=== PATIENT | female | born 1945 | race Caucasian/White ===

== ENCOUNTER 2019-09-14 17:37 | Inpatient (IN) | payer BC ==
[2019-09-14] VITALS (18 sets, daily range): BP systolic 86–163; BP diastolic 37–103
[~2019-09-14] VITALS: Ht 152.4 cm; Wt 65.3 kg
--- NOTE | 2019-09-14 11:21 | NUR ---
Respiratory note: PATIENT PLACED ON RENTAL V60 BIPAP FOR SEVERE SOB SECONDARY TO FLASH PULMONARY EDEMA. SHE WAS FITTED WITH A MEDIUM FULL FACE MASK AND SKIN IS INTACT AROUND MASK SITE. PATIENT REMAINS TACHYPNEIC BUT STATES SHE IS FEELING SOME RELIEF. BIPAP PLUGGED INTO RED OUTLET AND ALL ALARMS ARE SET AND AUDIBLE. WILL CONTINUE TO ASSESS PATIENT AND BIPAP FUNCTION. SETTINGS ARE FOLLOWS: IPAP 15, EPAP 8, FIO2 100%.
[2019-09-14] MEDS: PROPOFOL 100 ML IV SCH ×2 (12:48→18:50)
--- NOTE | 2019-09-14 13:06 | NUR ---
Respiratory note: PATIENT WAS INTUBATED FOR IMPENDING RESPIRATORY FAILURE SECONDARY TO FLASH PULMONARY EDEMA. SHE WAS INTUBATED WITH AN 8.0 ETT BY RAMIN BENEDICT. POSITIVE COLOR CHANGE WAS SEEN ON CO2 DETECTOR, BILATERAL BREATH SOUNDS WERE HEARD, AND CONDENSATION WAS SEEN IN TUBE; ETT WAS SECURED VIA MIMI AT THE 22CM MARKING AT THE LIP. AWAITING CXR FOR ETT DEPTH CONFIRMATION. PATIENT WAS PLACED ON V20 V200 VENT WITH THE FOLLOWING SETTINGS PER DR. VALLE'S BEDSIDE ORDER: AC 14, 400, +8, 100% SPUTUM SAMPLE COLLECTED AND SENT TO LAB. A LARGE AMOUNT OF PINK FROTHY SECRETIONS WERE PRESENT WHEN SUCTIONED. PATIENT IS SEDATED ON PROPOFOL DRIP AND IS SLIGHTLY AGITATED. VENT PLUGGED INTO RED OUTLET AND ALL ALARMS ARE SET AND AUDIBLE. WILL CONTINUE TO ASSESS PATIENT WELL VENTILATOR FUNCTION.
[2019-09-14 13:39] LABS: Basophils # (auto) 0 10 ^3/uL (0-0.2); Basophils % (auto) 0.3 % (0.0-2.0); Eosinophils # (auto) 0 10 ^3/uL (0-0.8); Eosinophils % (auto) 0.1 % (0.0-7.0); Hematocrit 46.9 % (36.0-46.0); Hemoglobin 14.7 g/dL (12.2-16.2); Lymphocytes # (auto) 1.1 10 ^3/uL (0.4-5.4); Mean Corpuscular Hemoglobin 29.3 pg (28.0-32.0); Mean Corpuscular Hgb Conc. 31.5 g/dL (32.0-36.0); Mean Corpuscular Volume 93.1 fL (80.0-100.0); Monocytes # (auto) 0.4 10 ^3/uL (0-1.3); Monocytes % (auto) 3.5 % (0.0-12.0); Neutrophils # (auto) 9.2 10 ^3/uL (1.6-8.6); Neutrophils % (auto) 86.1 % (37.0-80.0); Platelet Count (auto) 150 10^3/uL (140-450); Red Blood Cells 5.03 10^6/uL (4.0-5.20); Red Cell Distribution Width 14.3 % (11.8-14.3); White Blood Cell 10.7 10^3/uL (4.4-10.8)
[2019-09-14 14:00] LABS: Anion Gap 9 (5-15); BUN/Creatinine Ratio 19.6; Blood Urea Nitrogen 19 mg/dL (7-18); Calcium 8.7 mg/dL (8.5-10.1); Carbon Dioxide 25 mmol/L (21-32); Chloride 105 mmol/L (98-107); GFR African American 72 mL/min; GFR Non-African American 59 mL/min; Glucose 199 mg/dL (74-106); Sodium 139 mmol/L (136-145)
[2019-09-14 14:11] LABS: Potassium 2.6 mmol/L (3.5-5.1)
[2019-09-14] MEDS: NOREPINEPHRINE 8 MG/250ML KIT 250 ML IV SCH (14:15)
[2019-09-14] MEDS: levoFLOXacin 500MG 100 ML IV SCH (15:00)
[2019-09-14 16:02] LABS: Calcium 7.8 mg/dL (8.5-10.1); Potassium 3.1 mmol/L (3.5-5.1)
[2019-09-14 16:05] LABS: BUN/Creatinine Ratio 18.3
[2019-09-14 16:14] LABS: Bilirubin, Total 1.3 mg/dL (0.2-1.0); Total Protein 7.8 g/dL (6.4-8.2)
[~2019-09-14 17:37] MED LIST: ACETAMINOPHEN 500 MG TAB PO PRN; ALBUTEROL SULF 2.5 MG/0.5ML(0.5%) NEB SOLN NEB PRN; AMIO200T33 PO; ANGIOMAX 250 MG VIAL IV ONE; ASPI1TAB19 PO; CHOL10009 PO; ETOMIDATE (2MG/ML) 20ML VIAL IV ONE; FLAX100024 PO; FURO1TAB33 PO; FUROSEMIDE 20 MG/2 ML VIAL ONE; FUROSEMIDE 40 MG/4 ML VIAL IV ONE; HEPARIN SODIUM (PORCINE) 5000 UNITS/ML 1ML VIAL ONE; HYDROcodone-ACET 5/325MG TAB PO PRN; IBAN1TAB3 PO; IODIXANOL 320MG/ML 100ML BTL IV ONE; LABETALOL HCL 5 MG/ML 4ML SYRINGE IV ONE; LABETALOL HCL 5 MG/ML ML 20ML VIAL IV ONE; LIDOCAINE 2%HCL (LOCAL ANESTH.) INJ 20ML MDV ONE; LIDOCAINE VISCOUS 2% 15ML UD PO ONE; LOSA-69 PO; MAGNESIUM SULFATE 1GM/100ML 100 ML IV ONE; MIDAZOLAM HCL 1MG/1ML-2 ML VIAL IV ONE; MORPHINE SULF INJ 2 MG/ML SYRINGE 1ML IV PRN; MULT1TAB69 PO; NITROGLYCERIN 0.4 MG SL TAB SL PRN; NOREPINEPHRINE 8 MG/250ML KIT 250 ML IV ONE; ONDANSETRON HCL 4 MG/2 ML VIAL IV PRN; PANTOPRAZOLE 40 MG/10 ML VIAL INJ IV ONE; POTA1TAB61 PO; POTASSIUM CHL 20MEQ/100ML 100 ML IV ONE; POTASSIUM EFFERVESENT TAB 25 MEQ GT ONE; PROPOFOL 100 ML IV ONE; SODIUM BICARBONATE 8.4 % INJ 50ML VIAL IV ONE; SODIUM CHL 0.9% 0 ML ONE; SODIUM CHLORIDE 0.9% 250 ML IV ONE; SPIRONOLACTONE 25 MG TAB PO ONE; SUCCINYLCHOLINE CHLORIDE 20 MG/ML 10ML VIAL IV ONE; VERAPAMIL 2.5MG/ML INJ 2ML VIAL IV ONE; diphenhdrAMINE HCL 50 MG/1 ML VL IV ONE; fentaNYL CITRATE 100 MCG/2 ML VL IV ONE; hydrALAZINE HCL 20 MG/ML VL IV ONE; hydrALAZINE HCL 20 MG/ML VL ONE
[2019-09-14] MEDS ORDERED: POTASSIUM CHL 20MEQ/100ML 100 ML IV ONE (18:34)
[2019-09-14] MEDS ORDERED: PROPOFOL 100 ML IV ONE ×2 (18:34→22:49)
--- NOTE | 2019-09-14 18:35 | NUR ---
Pt being admitted to ICU SUZETTE NOLASCO admitted to ICU intubated and sedated, size 8 ET, 24 on the lip, AC 14, Vt 400, PEEP 8, FIO2 40%. Patient transfered to bed, connected to ICU monitoring. OGT clamped. RT wrist and RT AC dressing dry and asymptomatic. See spreadsheet for complete physical assessment. Bed locked on low position, side rails up x2, bed alarms on at all times, will continue to monitor patient.
[2019-09-14] MEDS ORDERED: FUROSEMIDE 20 MG/2 ML VIAL ONE (19:02)
[2019-09-14] MEDS: FUROSEMIDE 20 MG/2 ML VIAL IV SCH (19:03)
--- NOTE | 2019-09-14 19:30 | NUR ---
REPORT RECEIVED AND ASSUMED CARE; SEE INTERVENTIONS FOR ASSESSMENT; SEE IV SPREADSHEET FOR GTTS; VS STABLE AT THIS TIME WITH PT. ON LEVO GTT AT 6MCG; PT. ADMITTED FROM TAX ASSESSOR S/P HEART CATH- INTUBATED R/T INCREASED WOB AND DYSPNEA/ POSSIBLE FLASH PULMONARY EDEMA; WILL CONT. TO MONITOR.
[2019-09-14 19:47] LABS: Urine Bacteria NONE SEEN /hpf (None Seen); Urine Blood 3+ /uL (Negative); Urine Hyaline Cast FEW /lpf (0 - 2); Urine Mucus FEW (None Seen); Urine Specific Gravity 1.012 (1.001-1.035); Urine WBC 6 /hpf (0 - 5)
[2019-09-14] MEDS: POTASSIUM EFFERVESENT TAB 25 MEQ GT SCH (22:00)
[2019-09-15] VITALS (63 sets, daily range): BP systolic 89–122; BP diastolic 33–69
[2019-09-15 04:40] LABS: Albumin 2.8 g/dL (3.4-5.0); Calcium 7.7 mg/dL (8.5-10.1); Potassium 3.7 mmol/L (3.5-5.1)
[2019-09-15 04:44] LABS: BUN/Creatinine Ratio 17.4; Bilirubin, Total 0.9 mg/dL (0.2-1.0)
[2019-09-15 04:46] LABS: Basophils # (auto) 0 10 ^3/uL (0-0.2); Basophils % (auto) 0.1 % (0.0-2.0); Eosinophils # (auto) 0 10 ^3/uL (0-0.8); Hematocrit 41.5 % (36.0-46.0); Hemoglobin 13.4 g/dL (12.2-16.2); Lymphocytes # (auto) 0.9 10 ^3/uL (0.4-5.4); Lymphocytes % (auto) 5.8 % (10.0-50.0); Mean Corpuscular Hemoglobin 28.9 pg (28.0-32.0); Mean Corpuscular Hgb Conc. 32.2 g/dL (32.0-36.0); Mean Corpuscular Volume 89.6 fL (80.0-100.0); Monocytes # (auto) 0.8 10 ^3/uL (0-1.3); Monocytes % (auto) 4.9 % (0.0-12.0); Neutrophils # (auto) 14.5 10 ^3/uL (1.6-8.6); Neutrophils % (auto) 89.2 % (37.0-80.0); Nucleated Red Blood Cells % 0.1 %; Red Blood Cells 4.64 10^6/uL (4.0-5.20); Red Cell Distribution Width 13.5 % (11.8-14.3); White Blood Cell 16.2 10^3/uL (4.4-10.8)
[2019-09-15 04:47] LABS: Platelet Count (auto) 128 10^3/uL (140-450)
[2019-09-15] MEDS ORDERED: NOREPINEPHRINE 8 MG/250ML KIT 250 ML IV ONE (04:56)
[2019-09-15] MEDS ORDERED: FUROSEMIDE 40 MG/4 ML VIAL ONE (04:56)
[2019-09-15] MEDS ORDERED: PROPOFOL 100 ML IV ONE (04:56)
[2019-09-15] MEDS: FUROSEMIDE 20 MG/2 ML VIAL IV SCH ×2 (06:00→17:49)
[2019-09-15] MEDS: MULTIPLE VITAMINS W/ MINERALS TAB PO SCH (07:00)
[2019-09-15] MEDS: CHOLECALCIFEROL (VITD3) 1,000UNIT=25mCg TAB PO SCH (07:00)
--- NOTE | 2019-09-15 07:30 | NUR ---
Opening Shift Note Assumed care of patient, intubated and sedated. Arousable to voice, able to make needs known. No S/S of distress/SOB or pain. See interventions for complete assessment. Bed locked on low position, side rails up x2, bed alarms on at all times, will continue to monitor for changes Q1hr and PRN.
--- NOTE | 2019-09-15 07:30 | NUR ---
Dr Lawton at bedside, updated on patient's status. Patient seen and examined. Received order to give Albumin IV and hold Lasix for today. Orders read back and verified. Will carry out.
[2019-09-15] MEDS ORDERED: ALBUMIN 25% 50 ML IV ONE (07:45)
[2019-09-15] MEDS ORDERED: SPIRONOLACTONE 25 MG TAB PO ONE (07:45)
--- NOTE | 2019-09-15 08:37 | NUR ---
OGT medications held, patient marilin CPAP today.
--- NOTE | 2019-09-15 09:00 | NUR ---
Patient for CPAP today. Sedation turned off. Will continue to monitor.
[2019-09-15] MEDS ORDERED: levoFLOXacin 500MG 100 ML IV ONE (09:33)
[2019-09-15] MEDS ORDERED: PANTOPRAZOLE 40 MG/10 ML VIAL INJ IV ONE (09:33)
--- NOTE | 2019-09-15 09:47 | NUR ---
Respiratory note: PT PLACED ON CPAP, TOLERATING WELL. RN AT BEDSIDE. NIF-44.3, VC 1318, RSBI 53. WILL CONTINUE TO MONITOR ORDERED.
[2019-09-15] MEDS: POTASSIUM EFFERVESENT TAB 25 MEQ GT SCH (10:00)
[2019-09-15] MEDS: PANTOPRAZOLE 40 MG/10 ML VIAL INJ IV SCH (10:01)
[2019-09-15] MEDS: levoFLOXacin 500MG 100 ML IV SCH (10:02)
--- NOTE | 2019-09-15 10:55 | NUR ---
Respiratory note: PT EXTUBATED PER DR JENKINS ORDER AND PLACED ON 35% COOL MIST AEROSOL MASK. NO STRIDOR NOTED UPON EXTUBATION. HR 74, RR 19, SPO2 100%, BP 110/52. RN AT BEDSIDE.
--- NOTE | 2019-09-15 13:10 | NUR ---
Respiratory note: PT PLACED ON 2 L NC, SPO2 100%. TOLERATING CHANGE WELL. RN THEA MADE AWARE OF CHANGES.
[2019-09-15] MEDS: NOREPINEPHRINE 8 MG/250ML KIT 250 ML IV SCH (14:35)
--- NOTE | 2019-09-15 18:35 | NUR ---
Dr Whittaker at bedside, updated on patient's status. Patient seen and examined. Will carry out new orders.
--- NOTE | 2019-09-15 18:55 | NUR ---
Spoke to patient's son over the phone. Updated on patient's status and POC, verbalized understanding. All questions and concerns addressed.
--- NOTE | 2019-09-15 19:30 | NUR ---
report received and assumed care; see interventions for assessment; see iv spreadsheet for gtts; vs stable at this time; pt. extubated today at 11:55 and pt. on NC at 2L-sitting in bed with no s/s of distress; will cont. to monitor.
[2019-09-16] VITALS (25 sets, daily range): BP systolic 99–127; BP diastolic 53–69
[2019-09-16 03:23] LABS: Basophils # (auto) 0 10 ^3/uL (0-0.2); Basophils % (auto) 0.2 % (0.0-2.0); Eosinophils # (auto) 0 10 ^3/uL (0-0.8); Eosinophils % (auto) 0.3 % (0.0-7.0); Hematocrit 35.4 % (36.0-46.0); Hemoglobin 11.7 g/dL (12.2-16.2); Lymphocytes # (auto) 0.7 10 ^3/uL (0.4-5.4); Lymphocytes % (auto) 8.6 % (10.0-50.0); Mean Corpuscular Hemoglobin 29.9 pg (28.0-32.0); Mean Corpuscular Volume 90.6 fL (80.0-100.0); Monocytes # (auto) 0.6 10 ^3/uL (0-1.3); Monocytes % (auto) 6.6 % (0.0-12.0); Neutrophils # (auto) 7.2 10 ^3/uL (1.6-8.6); Neutrophils % (auto) 84.3 % (37.0-80.0); Platelet Count (auto) 105 10^3/uL (140-450); Red Blood Cells 3.91 10^6/uL (4.0-5.20); White Blood Cell 8.6 10^3/uL (4.4-10.8)
[2019-09-16 03:45] LABS: Albumin 2.7 g/dL (3.4-5.0); Calcium 8.1 mg/dL (8.5-10.1)
[2019-09-16 03:47] LABS: BUN/Creatinine Ratio 19.7
[2019-09-16 03:50] LABS: Bilirubin, Total 1.3 mg/dL (0.2-1.0); Total Protein 6.8 g/dL (6.4-8.2)
--- NOTE | 2019-09-16 06:09 | NUR ---
RT NOTE: NO TX INDICATED AT THIS TIME. NO SIGNS OF RESPIRATORY DISTRESS NOTED. LUNG SOUNDS CLEAR/DIMINISHED T/O. ON 2L NC SPO2 98 HR 73 RR 18. PT AWARE TO PAGE FOR RESPIRATORY SHOULD NEED FOR TX ARISE. WILL CONTINUE TO MONITOR.
[2019-09-16] MEDS: FUROSEMIDE 20 MG/2 ML VIAL IV SCH (06:54)
[2019-09-16] MEDS: MULTIPLE VITAMINS W/ MINERALS TAB PO SCH (06:55)
[2019-09-16] MEDS: CHOLECALCIFEROL (VITD3) 1,000UNIT=25mCg TAB PO SCH (06:55)
--- NOTE | 2019-09-16 08:00 | NUR ---
Opening Shift Note Assumed care of patient, awake and alert. No S/S of distress/SOB or pain. See interventions for complete assessment. Bed locked on low position, side rails up x2, bed alarms on at all, instructed on POC and to call for assist PRN, will continue to monitor for changes Q1hr and PRN.
[2019-09-16] MEDS: levoFLOXacin 500MG 100 ML IV SCH (09:46)
[2019-09-16] MEDS: PANTOPRAZOLE 40 MG/10 ML VIAL INJ IV SCH (09:46)
[2019-09-16] MEDS: POTASSIUM EFFERVESENT TAB 25 MEQ GT SCH ×2 (09:46)
--- NOTE | 2019-09-16 12:40 | NUR ---
Spoke to Dr Lees over the phone, updated on patient's status. Informed of potassium level 3.0, MD verbalized understanding and will put in orders. Per MD patient can be transferred to Telemetry floor. Orders read back and verified. Will carry out.
--- NOTE | 2019-09-16 12:59 | NUR ---
Patient instructed and motivated on use of IS, verbalized understanding and return demonstrated. Able to do up to 500ml.
[2019-09-16] MEDS: POTASSIUM CHL 20MEQ/100ML 100 ML IV SCH ×2 (13:25→17:25)
--- NOTE | 2019-09-16 14:52 | NUR ---
Patient out of bed with Andrew PT. Fall precautions in place. Patient tolerated walking with a cane around nurse station.
--- NOTE | 2019-09-16 15:21 | NUR ---
Dr Lawton at bedside, updated on patient's status. Patient seen and examined. Per Dr Lawton, patient is cleared to go home tomorrow from cardiology standpoint. Read back and verified.
--- NOTE | 2019-09-16 16:23 | NUR ---
Speech therapist at bedside for swallow eval, per Hedy may start patient on cardiac diet.
--- NOTE | 2019-09-16 16:34 | NUR ---
SWALLOW EVALUATED. PATIENT HAS NATURAL TEETH, UPPER AND LOWER. PATIENT ABLE TO FOLLOW COMMANDS. PATIENT ABLE TO TOLERATE MECHANICAL SOFT DIET TEXTURE WITH THIN LIQUIDS WITH NO OVERT SIGNS OR SYMPTOMS OF ASPIRATION. NURSING NOTIFIED.
--- NOTE | 2019-09-16 17:23 | NUR ---
Dr Whittaker at bedside, updated on patient's status. Patient seen and examined. Patient to be evaluated for home oxygen.
--- NOTE | 2019-09-16 17:24 | NUR ---
Respiratory note: PT RECIEVED ON NC2L. NO RESP DISTRESS NOTED. PT AWAKE AND ALERT AT THIS TIME. SPO2 100%, HR 71, RR 17. BS FINE CRACKLES T/O. PRN TX NOT INDICATED AT THIS TIME. PT AWARE TO CALL FOR TX IF SOB/WHEEZING.
[2019-09-16] MEDS: SPIRONOLACTONE 25 MG TAB PO SCH (17:25)
--- NOTE | 2019-09-16 19:28 | NUR ---
OPENING NOTE RECEIVED REPORT FROM SOLIATRIO RN AND ASSUMED CARE OF PT. PT IS RESTING IN BED ON 2L NC, VSS. NO DISTRESS NOTED. PT IS ABLE TO SUCTION HERSELF IF NEEDED AND HAS NO COMPLAINTS OF PAIN. PT ONLY ATE 25% OF DINNER AND STATES THAT SHE'D LIKE TO SLOWLY PROGRESS HER DIET. IS EDUCATION REINFORCED. PT VERBALIZED UNDERSTANDING OF POC FOR THIS EVENING. WILL CONTINUE TO MONITOR AND ASSESS PT.
--- NOTE | 2019-09-16 20:00 | NUR ---
MD Fang HESS AT BEDSIDE MD EXAMINED PT AND REQUESTS THAT PHYSICAL THERAPY PLACE A NOTE/RECOMMENDATION FROM THEIR VISIT WITH THE PT TODAY 09/15. ORDERS RECEIVED TO GET IMAGING CD FOR PT UPON DISCHARGE.
[2019-09-17 03:27] VITALS: BP 114/60
[2019-09-17 04:20] LABS: Basophils # (auto) 0 10 ^3/uL (0-0.2); Basophils % (auto) 0.7 % (0.0-2.0); Eosinophils # (auto) 0.1 10 ^3/uL (0-0.8); Eosinophils % (auto) 1.6 % (0.0-7.0); Hematocrit 36.2 % (36.0-46.0); Hemoglobin 11.6 g/dL (12.2-16.2); Lymphocytes # (auto) 0.8 10 ^3/uL (0.4-5.4); Lymphocytes % (auto) 10.9 % (10.0-50.0); Mean Corpuscular Hemoglobin 29.1 pg (28.0-32.0); Mean Corpuscular Volume 90.8 fL (80.0-100.0); Monocytes # (auto) 0.5 10 ^3/uL (0-1.3); Monocytes % (auto) 7.1 % (0.0-12.0); Neutrophils # (auto) 5.9 10 ^3/uL (1.6-8.6); Neutrophils % (auto) 79.7 % (37.0-80.0); Platelet Count (auto) 106 10^3/uL (140-450); Red Blood Cells 3.98 10^6/uL (4.0-5.20); Red Cell Distribution Width 14.2 % (11.8-14.3); White Blood Cell 7.4 10^3/uL (4.4-10.8)
[2019-09-17 04:41] LABS: Albumin 2.6 g/dL (3.4-5.0); Calcium 7.8 mg/dL (8.5-10.1); Potassium 3.4 mmol/L (3.5-5.1)
[2019-09-17 04:44] LABS: BUN/Creatinine Ratio 26.5; Bilirubin, Total 1.4 mg/dL (0.2-1.0)
--- NOTE | 2019-09-17 04:56 | NUR ---
PT CARE ORAL CARE DONE. HAIR BRUSHED AND PARTIAL ARNOLDO CHANGE DONE. PT DANGLING FEET/ STANDING WITH CANE ASSISTANCE AT BEDSIDE. TOLERATED WELL WITH NO DISTRESS.
[2019-09-17] MEDS: CHOLECALCIFEROL (VITD3) 1,000UNIT=25mCg TAB PO SCH (07:00)
[2019-09-17] MEDS: MULTIPLE VITAMINS W/ MINERALS TAB PO SCH (07:00)
[2019-09-17 08:00] VITALS: BP 114/60
--- NOTE | 2019-09-17 08:10 | NUR ---
DR. VALLE HERE TO SEE PATIENT. SEE MD NOTES AND EMR FOR ANY NEW ORDERS.
--- NOTE | 2019-09-17 09:20 | NUR ---
PHYSICAL THERAPY HAS PATIENT OOB AND WALKING AROUND THE PROOFER BLACK AND WHITE. PATIENT TOLERATING WELL.
[2019-09-17] MEDS: levoFLOXacin 500MG 100 ML IV SCH (09:39)
[2019-09-17] MEDS: PANTOPRAZOLE 40 MG/10 ML VIAL INJ IV SCH (09:39)
[2019-09-17] MEDS: SPIRONOLACTONE 25 MG TAB PO SCH (09:39)
[2019-09-17] MEDS ORDERED: FUROSEMIDE 20 MG TAB PO SCH (10:00)
[2019-09-17] MEDS ORDERED: POTASSIUM CHL 20 Meq TABLET PO SCH (10:00)
--- NOTE | 2019-09-17 10:45 | NUR ---
Assessment Patient is a 74-year-old female who is alert and oriented. Prior to admission patient lived home alone and functioned independently. Per patient she can care for her own ADLs. Per patient she has a cane for home use. Per patient she does well with her cane and does not need a walker. Per patient she will return home to her prior living arrangements post discharge and family will transport her home. Per patient her son Robert will be staying with her until the weekend and then her granddaughter Neptali will be staying with her until she is able to care for herself again. Per patient she has great family support. Advised patient there is a social service consult for home health safety evaluation and physical therapy and home oxygen. Informed patient clinical information will be faxed to contracted agency with health plan and [facility] for home oxygen. Informed patient she has the right to participate in all discharge planning. Patient verbalized understanding and agreed to discharge plan. Faxed clinical information to [facility], [facility] and [facility] requesting to deliver oxygen portable to bedside. Per Mckenzie with [facility] patient has been accepted and service to start within 24-48hrs upon d/c day. Placed called to IRISH Guevara advising her patient has orders for home health and [facility]. Per IRISH Guevara authorization will be given to home health and DME. Informed ALICIA Ortega. Addendum: 09/17/19 at 1050 by PAULINE HERNÁNDEZ Amended: Links added.
[2019-09-17 12:00] VITALS: BP 114/60
[2019-09-17] MEDS ORDERED: LEVO500T21 PO (14:00)
[2019-09-17] MEDS ORDERED: POTASSIUM CHL 20 Meq TABLET PO ONE (14:00)
[2019-09-17 14:01] VITALS: BP 114/60
[2019-09-17 14:09] VITALS: BP 114/60
[2019-09-17] MEDS ORDERED: FURO1TAB31 PO (14:23)
[2019-09-17] MEDS ORDERED: SPIR25TA88 PO (14:24)
--- NOTE | 2019-09-17 15:49 | NUR ---
D/C Planning Per Mckenzie with [facility] [phone] patient has been accepted and service to start within 24-48hrs upon d/c . Per Nasrin with [phone] patient portable oxygen will be deliver to bedside between 16-18:00 and concentrate oxygen to home. Informed ALICIA Ortega.
[2019-09-17 16:00] VITALS: BP 114/60
--- NOTE | 2019-09-17 16:31 | NUR ---
IV removal IV TO LEFT AC DC'd with clean sterile technique, catheter fully intact. Pressure dressing applied to site. Patient tolerated well.
--- NOTE | 2019-09-17 18:34 | NUR ---
Zepeda catheter dc'd Order to discontinue Zepeda catheter. Zepeda dc'd with clean technique following deflation of balloon. Patient tolerated well with no complaints of pain. Continue care.
--- NOTE | 2019-09-17 19:36 | NUR ---
PT DISCHARGED DISCHARGE AND HOME 02 TEACHING DONE BY SOLITARIO RN. PT IN WHEELCHAIR WITH ALL BELONGINGS AWAITING GRANDDAUGHTERS ARRIVAL. PT VERBALIZES UNDERSTANDING OF DISCHARGE INSTRUCTIONS WHEN ASKED. PT WHEELED TO HEART CENTER PARKING LOT BY THIS RN AND ALICIA SALAZAR. MARIE EDUCATED PT GRANDDAUGHTER ON USE OF HOME 02 DEVICE. VERBALIZED UNDERSTANDING.
== END 2019-09-17 19:36 | disposition home health service (06) | DRG 286 ==
LOC: CATH 1 17:37 → CATH ICU 17:47
PROVIDERS: ADMIT Internal Medicine; ATTEND Internal Medicine
PROC: 4A023N8 Measurement of Cardiac Sampling and Pressure, Bilateral, Percutaneous Approach (ICD-10-PCS; principal; 2019-09-14)
PROC: B211YZZ Fluoroscopy of Multiple Coronary Arteries using Other Contrast (ICD-10-PCS; 2019-09-14)
PROC: 5A1935Z Respiratory Ventilation, Less than 24 Consecutive Hours (ICD-10-PCS; 2019-09-14)
PROC: 0BH17EZ Insertion of Endotracheal Airway into Trachea, Via Natural or Artificial Opening (ICD-10-PCS; 2019-09-14)
PROC: 5A09357 Assistance with Respiratory Ventilation, Less than 24 Consecutive Hours, Continuous Positive Airway Pressure (ICD-10-PCS; 2019-09-14)
DX: I05.2 Rheumatic mitral stenosis with insufficiency (principal); J96.01 Acute respiratory failure with hypoxia; R57.0 Cardiogenic shock; K92.0 Hematemesis; E87.2 Acidosis; J98.11 Atelectasis; I48.91 Unspecified atrial fibrillation; E87.6 Hypokalemia; T50.1X5A Adverse effect of loop [high-ceiling] diuretics, initial encounter; E78.5 Hyperlipidemia, unspecified; M81.0 Age-related osteoporosis without current pathological fracture; I11.0 Hypertensive heart disease with heart failure; I50.9 Heart failure, unspecified; Z79.899 Other long term (current) drug therapy; Z79.82 Long term (current) use of aspirin; Z88.8 Allergy status to other drugs, medicaments and biological substances; Y92.89 Other specified places as the place of occurrence of the external cause; Z03.818 Encounter for observation for suspected exposure to other biological agents ruled out
CPT/HCPCS: 31500; 36415; 36600; 71045; 80048; 80053; 81001; 82805; 84484; 85025; 85610; 85730; 87070; 87205; 92610; 93005; 93312; 93460; 94002; 94003; 94640; 94660; 99152; 99153; A4565; C1751; C9113; G0378; J0330; J1956; J2250; J2704; J3480; Q9967

== ENCOUNTER 2019-10-04 03:54 | Emergency (ER) | payer BC ==
[~2019-10-04] VITALS: Ht 149.9 cm; Wt 68.9 kg
[~2019-10-04 03:54] MED LIST changes: -ACETAMINOPHEN 500 MG TAB PO PRN; -ALBUTEROL SULF 2.5 MG/0.5ML(0.5%) NEB SOLN NEB PRN; -ANGIOMAX 250 MG VIAL IV ONE; -ETOMIDATE (2MG/ML) 20ML VIAL IV ONE; +FURO1TAB31 PO; -FURO1TAB33 PO; -FUROSEMIDE 20 MG/2 ML VIAL ONE; -FUROSEMIDE 40 MG/4 ML VIAL IV ONE; -HEPARIN SODIUM (PORCINE) 5000 UNITS/ML 1ML VIAL ONE; -HYDROcodone-ACET 5/325MG TAB PO PRN; -IODIXANOL 320MG/ML 100ML BTL IV ONE; -LABETALOL HCL 5 MG/ML 4ML SYRINGE IV ONE; -LABETALOL HCL 5 MG/ML ML 20ML VIAL IV ONE; +LEVO500T21 PO; -LIDOCAINE 2%HCL (LOCAL ANESTH.) INJ 20ML MDV ONE; -LIDOCAINE VISCOUS 2% 15ML UD PO ONE; -LOSA-69 PO; -MAGNESIUM SULFATE 1GM/100ML 100 ML IV ONE; -MIDAZOLAM HCL 1MG/1ML-2 ML VIAL IV ONE; -MORPHINE SULF INJ 2 MG/ML SYRINGE 1ML IV PRN; -NITROGLYCERIN 0.4 MG SL TAB SL PRN; -NOREPINEPHRINE 8 MG/250ML KIT 250 ML IV ONE; -ONDANSETRON HCL 4 MG/2 ML VIAL IV PRN; -PANTOPRAZOLE 40 MG/10 ML VIAL INJ IV ONE; -POTASSIUM CHL 20MEQ/100ML 100 ML IV ONE; -POTASSIUM EFFERVESENT TAB 25 MEQ GT ONE; -PROPOFOL 100 ML IV ONE; -SODIUM BICARBONATE 8.4 % INJ 50ML VIAL IV ONE; -SODIUM CHL 0.9% 0 ML ONE; -SODIUM CHLORIDE 0.9% 250 ML IV ONE; +SPIR25TA88 PO; -SPIRONOLACTONE 25 MG TAB PO ONE; -SUCCINYLCHOLINE CHLORIDE 20 MG/ML 10ML VIAL IV ONE; -VERAPAMIL 2.5MG/ML INJ 2ML VIAL IV ONE; -diphenhdrAMINE HCL 50 MG/1 ML VL IV ONE; -fentaNYL CITRATE 100 MCG/2 ML VL IV ONE; -hydrALAZINE HCL 20 MG/ML VL IV ONE; -hydrALAZINE HCL 20 MG/ML VL ONE
[2019-10-04 08:30] LABS: Basophils # (auto) 0 10 ^3/uL (0-0.2); Basophils % (auto) 0.5 % (0.0-2.0); Eosinophils # (auto) 0.1 10 ^3/uL (0-0.8); Eosinophils % (auto) 0.8 % (0.0-7.0); Hematocrit 38.2 % (36.0-46.0); Hemoglobin 12.4 g/dL (12.2-16.2); Lymphocytes # (auto) 0.7 10 ^3/uL (0.4-5.4); Lymphocytes % (auto) 10.7 % (10.0-50.0); Mean Corpuscular Hemoglobin 29.7 pg (28.0-32.0); Mean Corpuscular Hgb Conc. 32.5 g/dL (32.0-36.0); Mean Corpuscular Volume 91.5 fL (80.0-100.0); Monocytes # (auto) 0.4 10 ^3/uL (0-1.3); Monocytes % (auto) 6.1 % (0.0-12.0); Neutrophils # (auto) 5.3 10 ^3/uL (1.6-8.6); Neutrophils % (auto) 81.9 % (37.0-80.0); Platelet Count (auto) 167 10^3/uL (140-450); Red Blood Cells 4.18 10^6/uL (4.0-5.20); Red Cell Distribution Width 14.6 % (11.8-14.3); White Blood Cell 6.5 10^3/uL (4.4-10.8)
[2019-10-04 08:44] LABS: INR 1.02 (0.9-1.15); Partial Thromboplastin Time 26.5 sec (23.0-31.2)
[2019-10-04 08:50] LABS: Alanine Aminotransferase 38 U/L (13-56); Albumin 3.5 g/dL (3.4-5.0); Anion Gap 5 (5-15); Aspartate Aminotransferase 37 U/L (15-37); BUN/Creatinine Ratio 13.8; Blood Urea Nitrogen 11 mg/dL (7-18); Carbon Dioxide 28 mmol/L (21-32); Chloride 108 mmol/L (98-107); GFR African American 90 mL/min; GFR Non-African American 74 mL/min; Glucose 98 mg/dL (74-106); Potassium 3.5 mmol/L (3.5-5.1); Sodium 141 mmol/L (136-145)
[2019-10-04 08:54] LABS: Alkaline Phosphatase 69 U/L (45-117); Bilirubin, Total 0.9 mg/dL (0.2-1.0); Total Protein 7.9 g/dL (6.4-8.2)
[2019-10-04] MEDS ORDERED: FUROSEMIDE 40 MG/4 ML VIAL IV ONE (15:45)
[2019-10-04 18:32] VITALS: BP 130/74
[2019-10-04 18:41] LABS: Urine Bacteria FEW /hpf (None Seen); Urine Blood Negative /uL (Negative); Urine Hyaline Cast FEW /lpf (0 - 2); Urine Mucus FEW (None Seen); Urine Specific Gravity 1.007 (1.001-1.035); Urine WBC <1 /hpf (0 - 5)
== END 2019-10-04 18:43 | disposition home or self-care (01) ==
LOC: ER 03:54
DX: I11.0 Hypertensive heart disease with heart failure (principal); I50.9 Heart failure, unspecified; Z79.899 Other long term (current) drug therapy; Z79.82 Long term (current) use of aspirin; Z88.8 Allergy status to other drugs, medicaments and biological substances
CPT/HCPCS: 36415; 71045; 80053; 81001; 83880; 84484; 85025; 85610; 85730; 93005; 96374; 99285; J1940

== ENCOUNTER 2023-07-01 05:58 | Emergency (ER) | payer BC ==
[~2023-07-01] VITALS: Ht 149.9 cm; Wt 68.2 kg
[~2023-07-01 05:58] MED LIST changes: -LEVO500T21 PO; +LEVO500T31 PO; +POTA-215 PO; -POTA1TAB61 PO; +SPIR25TA PO; -SPIR25TA88 PO
[2023-07-01 06:15] VITALS: PULSE 73; RESP 12; O2SAT 96
[2023-07-01 06:35] LABS: Chloride 108 mmol/L (98-107); Potassium 3.8 mmol/L (3.5-5.1); Sodium 140 mmol/L (136-145)
[2023-07-01 06:36] LABS: Anion Gap 6 (5-15); Calcium 9.2 mg/dL (8.5-10.1); Carbon Dioxide 26 mmol/L (20-30)
[2023-07-01 06:41] LABS: BUN/Creatinine Ratio 15.2 (10.0-20.0); Blood Urea Nitrogen 10 mg/dL (9-23); Glucose 93 mg/dL (74-106)
[2023-07-01 06:50] LABS: Urine Bacteria FEW /hpf (None Seen); Urine Blood Negative /uL (Negative); Urine Clarity Clear (Clear); Urine Color Light-Yellow (Yellow); Urine Protein, UAD Negative (Negative); Urine Urobilinogen Normal (Negative); Urine WBC 2 /hpf (0 - 5); Urine pH 6.5 (5.0-9.0)
[2023-07-01 06:51] LABS: Basophils # (auto) 0 10 ^3/uL (0-0.2); Basophils % (auto) 0.4 % (0.0-2.0); Eosinophils # (auto) 0.1 10 ^3/uL (0-0.8); Eosinophils % (auto) 1.8 % (0.0-7.0); Hematocrit 40.1 % (36.0-46.0); Hemoglobin 12.9 g/dL (12.2-16.2); Lymphocytes # (auto) 1.1 10 ^3/uL (0.4-5.4); Lymphocytes % (auto) 17.2 % (10.0-50.0); Mean Corpuscular Hemoglobin 29.5 pg (28.0-32.0); Mean Corpuscular Hgb Conc. 32.3 g/dL (32.0-36.0); Mean Corpuscular Volume 91.3 fL (80.0-100.0); Monocytes # (auto) 0.5 10 ^3/uL (0-1.3); Monocytes % (auto) 7.6 % (0.0-12.0); Neutrophils # (auto) 4.7 10 ^3/uL (1.6-8.6); Nucleated Red Blood Cells % 0.2 %; Red Blood Cells 4.39 10^6/uL (4.0-5.20); White Blood Cell 6.4 10^3/uL (4.4-10.8)
[2023-07-01 07:33] VITALS: PULSE 70; RESP 15; O2SAT 99
[2023-07-01] MEDS: MORPHINE SULFATE INJ 2 MG/ml SYRG IV ONE (07:39)
[2023-07-01] MEDS: ONDANSETRON HCL 4 MG/2 ML VIAL IV ONE (07:39)
[2023-07-01 11:24] VITALS: BP 169/80; PULSE 74; RESP 16; TEMP 98.3; O2SAT 96
== END 2023-07-01 11:33 | disposition home or self-care (01) ==
LOC: EDBD 05:58 → ER 05:58
DX: R07.89 Other chest pain (principal); I11.0 Hypertensive heart disease with heart failure; I50.9 Heart failure, unspecified; I48.91 Unspecified atrial fibrillation; Z85.9 Personal history of malignant neoplasm, unspecified; Z98.890 Other specified postprocedural states; Z91.018 Allergy to other foods; Z79.899 Other long term (current) drug therapy
CPT/HCPCS: 36415; 71045; 80048; 81001; 83880; 84484; 85025; 93005

== ENCOUNTER 2024-06-28 09:42 | Inpatient (IN) | payer BC, OTHER ==
[~2024-06-28] VITALS: Ht 157.5 cm; Wt 61.3 kg
[2024-06-28 10:08] VITALS: PULSE 66; RESP 18; O2SAT 99
--- NOTE | 2024-06-28 10:24 | ECG ---
[facility] Test Date: 2024-06-28 Test Time: 09:58:05 Pat Name: SUZETTE NOLASCO Department: ED Room: Gender: F Pt Escort: AFIA : 1945 Requested By: SUMAYA NORIEGA Order Number: [id number] Reading MD: Paddy Fuentes Measurements Intervals Ida Rate: 67 P: 74 NC: 147 QRS: 29 QRSD: 90 T: 43 QT: 424 QTc: 448 Interpretive Statements Sinus rhythm Borderline T abnormalities, anterior leads Electronically Signed On 06-28-2024 13:58:18 PDT by Paddy Fuentes Please click the below link to view image of tracing.
--- NOTE | 2024-06-28 10:58 | ED.PDOC ---
History of Present Illness HPI Comments 78 year old female presents to the ED via EMS with a chief complaint of dizziness onset today (06/28/24). PMHx HTN, a-fib, CHF, cancer. Patient states she woke up this morning experiencing dizziness, disoriented, shortness of breath, seeing black dots. Patient checked BP at home, was 165/90, usually BP is 120 systolic, took Losartan 25mg and Carvedilol medication, symptoms did not resolve after an hour, called 911. Patient states shortness of breath resolved, is currently experiencing dizziness, slight confusion, sees black dots. She ran out of Multaq medication about 1 week ago. Chief Complaint: Dizziness Time Seen by MD: 10:30 Primary Care Provider: HARI Reviewed Notes: Medications, Allergies Allergies: Coded Allergies: Cinnamon (Verified Allergy, Mild, Facial swelling, 09/09/19) Home Meds Active Scripts Levofloxacin (Levaquin) 500 Mg Tab, 500 MG PO DAILY, #5 MG Prov:ALMAZ HESS MD 09/17/19 Reported Medications Spironolactone (Aldactone) 25 Mg Tab, 25 MG PO DAILY for 20 Days, #20 TAB 1 Refill 09/17/19 Furosemide (Lasix) 40 Mg Tab, 40 MG PO DAILY for 20 Days, #20 TAB 1 Refill 09/17/19 Flaxseed (Linseed) (Flax Seed Oil 1000 mg) 1 Cap Cap, 1 CAP PO QAM for SUPPLEMENT 09/09/19 Aspirin (Aspirin) 81 Mg Tab, 81 MG PO QAM for PREVENTION 09/09/19 Multiple Vitamins W/ Minerals (Multivitamin Women 50+) 1 Tab Tab, 1 TAB PO QAM for SUPPLEMENT 09/09/19 Cholecalciferol (Vitamin D3) 1,000 Unit Cap, 1000 UNIT PO QAM for SUPPLEMENT 09/09/19 Ibandronate Sodium (Boniva) 150 Mg Tab, 150 MG PO ONCE A MONTH for OSTEOPOROSIS 09/09/19 Potassium Chloride (Klor-Con M10) 10 Meq Tab, 1 TAB PO QAM for DIURETIC SUPPLEMENT 09/09/19 Amiodarone Hcl (Amiodarone Hcl) 200 Mg Tab, 100 MG PO BID for HYPERTENSION 09/09/19 Information Source: Patient Mode of Arrival: EMS Severity: Moderate Timing: Hours Duration: Since onset Prehospital treatment: Treatment (Losartan 25 mg) Past Medical History PAST MEDICAL HISTORY: AFIB, Cancer, CHF, HTN Surgical History: PTCA Family History Family History: Reviewed,noncontributory to illness, No family hx of Cancer, No family hx of DM, No family hx of Heart humera, No family hx of HTN, No family hx ofKidney humera, No family hx of Liver humera, No family hx of Lung humera, No family hx of Stroke Social History Smoker: Non-Smoker Alcohol: Denies ETOH Use Drugs: Denies Drug Use Lives In: Home Constitutional: denies: chills, diaphoresis, fatigue, fever, malaise, sweats, weakness, others EENTM: reports: others (sees black dots); denies: blurred vision, double vision, ear bleeding, ear discharge, ear drainage, ear pain, ear ringing, eye pain, eye redness, hearing loss, mouth pain, mouth swelling, nasal discharge, nose bleeding, nose congestion, nose pain, photophobia, tearing, throat pain, throat swelling, voice changes Respiratory: denies: cough, hemoptysis, orthopnea, SOB at rest, shortness of breath, SOB with excertion, stridor, wheezing, others Cardiovascular: reports: others (hypertension); denies: chest pain, dizzy spells, diaphoresis, Dyspnea on exertion, edema, irregular heart beat, left arm pain, lightheadedness, palpitations, PND, syncope Gastrointestinal: denies: abdomen distended, abdominal pain, blood streaked bowels, constipated, diarrhea, dysphagia, difficulty swallowing, hematemesis, melena, nausea, poor appetite, poor fluid intake, rectal bleeding, rectal pain, vomiting, others Genitourinary: denies: abnormal vagina bleeding, burning, dyspareunia, dysuria, flank pain, frequency, hematuria, incontinence, pain, , vagina discharge, urgency, others Neurological: reports: dizziness, others (confused); denies: fainting, headache, left sided numbness, left sided weakness, numbness, paresthesia, pre- existing deficit, right sided numbness, right sided weakness, seizure, speech problems, tingling, tremors, weakness Musculoskeletal: denies: back pain, gout, joint pain, joint swelling, muscle pain, muscle stiffness, neck pain, others Integumetry: denies: bruises, change in color, change in hair/nails, dryness, laceration, lesions, lumps, rash, wounds, others Allergic/Immunocompromised: denies: Difficulty Healing, Frequent Infections, Hives, Itching, others Hematologic/Lymphatic: denies: anemia, blood clots, easy bleeding, easy bruising, swollen glands, others Endocrine: denies: excessive hunger, excessive sweating, excessive thirst, excessive urination, flushing, intolerance to cold, intolerance to heat, unexplained weight gain, unexplained weight loss, others Psychiatric: denies: anxiety, bipolar disorder, depression, hopeless, panic disorder, schizophrenia, sleepless, suicidal, others All Other Systems: Reviewed and Negative Physical Exam General Appearance: Moderate Distress HEENT: Normal ENT Inspection, Pharynx Normal, TMs Normal Neck: Full Range of Motion, Non-Tender, Normal, Normal Inspection Respiratory: Chest Non-Tender, Lungs Clear, No Accessory Muscle Use, No Respiratory Distress, Normal Breath Sounds Cardiovascular: No Edema, No JVD, No Murmur, No Gallop, Normal Peripheral Pulses, Regular Rate/Rhythm Breast Exam: Deferred Gastrointestinal: No Organomegaly, Non Tender, No Pulsatile Mass, Normal Bowel Sounds, Soft Genitalia: Deferred Pelvic: Deferred Rectal: Deferred Extremities: No calf tenderness, Normal capillary refill, Normal inspection, Normal range of motion, Non-tender, No pedal edema Musculoskeletal : Apperance: Normal Neurologic: Alert, Normal Affect, Normal Mood, No Sensory Deficits Cerebellar Function: Normal Reflexes: Normal Skin: Dry, Normal Color, Warm Lymphatic: No Adenopathy Was a procedure done? Was a procedure done?: No EKG EKG : Pulse Rate (adult): 67 Cardiac Rhythm: NSR Block: None ST: Nonsp Comments EKG 2. Demonstrates 66 normal sinus rhythm no significant ST changes. Differential Dx Considerations may include: hypertensive urgency, hypertensive emergency, acute kidney injury X-Ray, Labs, Meds, VS Vital Signs Date Time Temp Pulse Resp B/P (MAP) Pulse Ox O2 Delivery O2 Flow Rate FiO2 06/28/24 15:54 66 06/28/24 14:55 117/57 06/28/24 14:03 75 12 127/60 (82) 96 06/28/24 13:54 177/71 06/28/24 13:25 98.3 71 15 177/71 (106) 99 98.3 06/28/24 12:00 74 06/28/24 11:43 72 158/75 74 177/87 78 181/96 06/28/24 11:09 167/76 06/28/24 11:06 67 06/28/24 11:00 65 06/28/24 10:08 66 18 99 Room Air* 0 21 06/28/24 10:06 66 18 169/70 (103) 99 06/28/24 09:58 67 06/28/24 09:45 97.9 87 16 155/86 (109) 100 97.9 Lab Test 06/28/24 12:03 06/28/24 11:35 06/28/24 10:54 Range/Units Troponin I High Sensitivity 52 *H 48 *H </=34 ng/L Urine Color Colorless Yellow Urine Clarity Clear Clear Urine pH 7.0 5.0-9.0 Urine Specific Bath 1.004 1.001-1.035 Urine Protein Negative Negative Urine Ketones Negative Negative Urine Blood Negative Negative /uL Urine Nitrite Negative Negative Urine Bilirubin Negative Negative Urine Urobilinogen Normal Negative mg/dL Urine Leukocyte Esterase Negative Negative /uL Urine RBC <1 0 - 4 /hpf Urine Microscopic WBC 1 0-5 /HPF Urine Squamous Epithelial Cells Few <5 /hpf Urine Bacteria None seen None Seen /hpf Urine Glucose Normal Normal mg/dL White Blood Count 5.1 4.4-10.8 10^3/uL Red Blood Count 4.61 4.0-5.20 10^6/uL Hemoglobin 13.7 12.2-16.2 g/dL Hematocrit 41.9 36.0-46.0 % Mean Corpuscular Volume 90.8 80.0-100.0 fL Mean Corpuscular Hemoglobin 29.7 28.0-32.0 pg Mean Corpuscular Hemoglobin Concent 32.7 32.0-36.0 g/dL Red Cell Distribution Width 13.4 11.8-14.3 % Platelet Count 99 L 140-450 10^3/uL Mean Platelet Volume 8.8 6.9-10.8 fL Neutrophils (%) (Auto) 69.5 37.0-80.0 % Lymphocytes (%) (Auto) 22.3 10.0-50.0 % Monocytes (%) (Auto) 5.5 0.0-12.0 % Eosinophils (%) (Auto) 1.9 0.0-7.0 % Basophils (%) (Auto) 0.8 0.0-2.0 % Neutrophils # (Auto) 3.5 1.6-8.6 10 ^3/uL Lymphocytes # (Auto) 1.1 0.4-5.4 10 ^3/uL Monocytes # (Auto) 0.3 0-1.3 10 ^3/uL Eosinophils # (Auto) 0.1 0-0.8 10 ^3/uL Basophils # (Auto) 0 0-0.2 10 ^3/uL Nucleated Red Blood Cells 0.0 % Sodium Level 141 136-145 mmol/L Potassium Level 3.9 3.5-5.1 mmol/L Chloride Level 108 H 98-107 mmol/L Carbon Dioxide Level 26 20-31 mmol/L Anion Gap 7 5-15 Blood Urea Nitrogen 13 9-23 mg/dL Creatinine 0.67 0.550-1.02 mg/dL Glomerular Filtration Rate Calc 88 >90 mL/min BUN/Creatinine Ratio 19.4 10.0-20.0 Serum Glucose 103 74-106 mg/dL Calcium Level 9.9 8.7-10.4 mg/dL Current Medications Medications (Trade) Dose Ordered Sig/Rosario Route Start Time Stop Time Status Last Admin Hydralazine HCl (Apresoline Injection) 5 mg ONCE ONCE IV 06/28/24 11:00 06/28/24 11:01 DC 06/28/24 11:09 Nitroglycerin (Ntrostat Sublingual) 0.4 mg ONCE ONCE SL 06/28/24 13:15 06/28/24 13:16 DC 06/28/24 13:54 [place] [id number] Ph: [phone] DIAGNOSTIC IMAGING Diagnostic Imaging Report : [id number] Signed PATIENT: SUZETTE NOLASCO VACCT: [id number] UNIT: [id number] : 1945 LOC: ER ROOM / BED: / AGE / SEX: 78 / F ADM STATUS: REG ER SERVICE 1331 ORDERING PHYSICIAN: SUMAYA NORIEGA MD PROCEDURE(s): CXR2 - CHEST TWO VIEWS ROUTINE REASON: chest pain ORDER NUMBER(s): [id number], ACCESSION NUMBER(s): [id number] CHEST TWO VIEWS ROUTINE CLINICAL HISTORY: chest pain COMPARISON: None TECHNIQUE: Frontal and lateral view of the chest was obtained FINDINGS: Lines and Tubes: None Lungs: No focal consolidation. Pleura: No effusion. No pneumothorax. Cardiomediastinal contours: Unremarkable. Midline sternotomy wires are noted. Mitral valvular replacement is noted. Bones: No acute osseous abnormality. IMPRESSION: No acute cardiopulmonary disease. ATED BY: MARÍA MERAZ DO DICTATED DATE/TIME: 06/28/241415 SIGNED BY: MARÍA MERAZ DO SIGNED DATE/TIME: 06/28/241415 CC: [place] [id number] Ph: [phone] DIAGNOSTIC IMAGING Diagnostic Imaging Report : [id number] Signed PATIENT: SUZETTE NOLASCO VACCT: [id number] UNIT: [id number] : 1945 LOC: ER ROOM / BED: / AGE / SEX: 78 / F ADM STATUS: REG ER SERVICE 17 ORDERING PHYSICIAN: SUMAYA NORIEGA MD PROCEDURE(s): HWOCT - HEAD WITHOUT CONTRAST REASON: ro bleed ORDER NUMBER(s): [id number], ACCESSION NUMBER(s): [id number] EXAM: CT HEAD WITHOUT CONTRAST HISTORY: ro bleed COMPARISON: None TECHNIQUE: Axial images were obtained and reformatted in coronal and sagittal planes. All CT scans at this medical facility are performed using dose modulation techniques as appropriate to a performed exam including the following: Automated exposure control was utilized; adjustment of the MA and/or KV according to patient size; and use of iterative reconstruction technique. CT Dose: CTDI volume is 51.24 mGy. Dose-length product is 907.49 mGy*cm FINDINGS: Supratentorial Region: No evidence for large acute territorial ischemia. No intracranial hemorrhage is noted. Confluent white matter hypoattenuating foci are noted bilaterally, which typically reflect chronic microvascular ischemic changes. Posterior Fossa: No acute abnormality. Brainstem: Unremarkable. Sellar/Suprasellar Region: Unremarkable. Ventricles, Cisterns, Sulci: Age-appropriate. Orbits: Unremarkable. Paranasal Sinuses: Unremarkable. Mastoid Air Cells: Unremarkable. Vasculature: Intracranial arterial calcified plaque formation noted. Bones/Soft Tissues: No acute abnormality. Other: None. IMPRESSION: 1. No acute intracranial process. ATED BY: GINGER MARTINEZ MD DICTATED DATE/TIME: 06/28/24 1636 SIGNED BY: GINGER MARTINEZ MD SIGNED DATE/TIME: 06/28/24 1636 CC: 78-year-old female presents here with high blood pressure. She reports symptoms of blurry vision, dizziness feeling disoriented. Blood pressure was found to be in the 160 systolic. She states however normally her blood pressure runs 120s. She does not report anything unusual. However does state over the last 1 week she has been off of her antiarrhythmic. On my evaluation patient appears to be in some distress. I have she had her with IV hydralazine which did not have any effect on her blood pressure has continued to remain high. During my re- evaluation of her she began to report some chest tightness. At that time patient was given nitroglycerin sublingual. That in turn did help her blood pressure and her symptoms did improve. Troponin is slightly high at 48 and next 1 is a 52. At this time I am concerned about acute coronary syndrome. Additionally while she was in the ER she had few runs of bradycardia going down as low as 36 biggest run lasting for proximally 10 minutes. At this time I did speak to Dr. Engel from [facility] multiple times. He did request a CT scan of the brain which I have done which is negative. This time given her instabili ty with her bradycardia, he is authorized stay at our ER. Authorization #[id number]. Patient is aware of the plan and is agreeable. Time of 1ST Reevaluation: 11:00 Reevaluation 1ST: Unchanged Patient Education/Counseling: Diagnosis, Treatment, Prognosis, Need For Follow Up Family Education/Counseling: No Family Present Departure 1 Departure Time of Disposition: 17:21 Impression: Primary Impression: Hypertensive emergency Additional Impressions: Sinus bradycardia Chest pain Qualified Codes: R07.9 - Chest pain, unspecified Disposition: ADMITTED INPATIENT Condition: Serious Comments Dr. Samaniego states he will look for a bed, give a call back Critical Care Note Critical Care Time?: Yes (45 min-critical care time only) Critical care comment: Patient here for dizziness, disorientation, blurry vision and chest tightness. Patient found to have a high blood pressure. Patient required immediate treatment of her blood pressure to prevent further end-organ damage. Patient was treated with hydralazine. Patient required multiple re-evaluations the by myself. Time also spent speaking to nursing staff, [place] physician multiple times, reassessing with the patient. Speaking to patient regarding her care. Stability Stability form required: No Heart Score Heart Score: Heart Score Response (Comments) Value History Moderate Suspicious 1 EKG Normal 0 Age >65 2 Risk Factors 1 or 2 risk factors 1 Troponin Normal limit 0 Total 4 I personally scribed for SUMAYA NORIEGA MD ([email or web address]) on 06/28/24 at 10:58. Electronically submitted by Elle Maier ([email or web address]). I personally scribed for SUMAYA NORIEGA MD ([email or web address]) on 06/28/24 at 11:06. Electronically submitted by Elle Maier ([email or web address]). I personally scribed for SUMAYA NORIEGA MD ([email or web address]) on 06/28/24 at 13:32. Electronically submitted by Elle Maier ([email or web address]). I personally scribed for SUMAYA NORIEGA MD ([email or web address]) on 06/28/24 at 14:36. Electronically submitted by Elle Maier ([email or web address]). I personally scribed for SUMAYA NORIEGA MD ([email or web address]) on 06/28/24 at 15:49. Electronically submitted by Elle Maier ([email or web address]). I personally scribed for SUMAYA NORIEGA MD ([email or web address]) on 06/28/24 at 17:06. Electronically submitted by Elle Maier ([email or web address]). SUMAYA NORIEGA MD June 28, 2024 10:58
[2024-06-28 11:03] LABS: Basophils # (auto) 0 10 ^3/uL (0-0.2); Basophils % (auto) 0.8 % (0.0-2.0); Eosinophils # (auto) 0.1 10 ^3/uL (0-0.8); Eosinophils % (auto) 1.9 % (0.0-7.0); Hematocrit 41.9 % (36.0-46.0); Hemoglobin 13.7 g/dL (12.2-16.2); Lymphocytes # (auto) 1.1 10 ^3/uL (0.4-5.4); Lymphocytes % (auto) 22.3 % (10.0-50.0); Mean Corpuscular Hemoglobin 29.7 pg (28.0-32.0); Mean Corpuscular Hgb Conc. 32.7 g/dL (32.0-36.0); Mean Corpuscular Volume 90.8 fL (80.0-100.0); Monocytes # (auto) 0.3 10 ^3/uL (0-1.3); Monocytes % (auto) 5.5 % (0.0-12.0); Neutrophils # (auto) 3.5 10 ^3/uL (1.6-8.6); Neutrophils % (auto) 69.5 % (37.0-80.0); Platelet Count (auto) 99 10^3/uL (140-450); Red Blood Cells 4.61 10^6/uL (4.0-5.20); Red Cell Distribution Width 13.4 % (11.8-14.3); White Blood Cell 5.1 10^3/uL (4.4-10.8)
[2024-06-28] MEDS: hydrALAZINE HCL 20 MG/ML VL IV ONE (11:09)
[2024-06-28 11:12] LABS: Potassium 3.9 mmol/L (3.5-5.1); Sodium 141 mmol/L (136-145)
[2024-06-28 11:13] LABS: Anion Gap 7 (5-15); Carbon Dioxide 26 mmol/L (20-31)
[2024-06-28 11:14] LABS: Calcium 9.9 mg/dL (8.7-10.4)
[2024-06-28 11:18] LABS: BUN/Creatinine Ratio 19.4 (10.0-20.0); Blood Urea Nitrogen 13 mg/dL (9-23); Glucose 103 mg/dL (74-106)
[2024-06-28 11:19] LABS: Chloride 108 mmol/L (98-107)
[2024-06-28 12:02] LABS: Urine Bacteria None Seen /hpf (None Seen)
[2024-06-28 12:07] LABS: Urine Blood Negative /uL (Negative); Urine Clarity Clear (Clear); Urine Color Colorless (Yellow); Urine Protein, UAD Negative (Negative); Urine Specific Gravity 1.004 (1.001-1.035); Urine Squamous Epithelial Cell FEW /hpf (<5); Urine Urobilinogen Normal (Negative); Urine WBC 1 /HPF (0-5)
[2024-06-28] MEDS: NITROGLYCERIN 0.4 MG SL TAB SL ONE (13:54)
--- NOTE | 2024-06-28 14:19 | DVH ---
XY CHEST TWO VIEWS ROUTINE CLINICAL HISTORY: chest pain COMPARISON: None TECHNIQUE: Frontal and lateral view of the chest was obtained FINDINGS: Lines and Tubes: None Lungs: No focal consolidation. Pleura: No effusion. No pneumothorax. Cardiomediastinal contours: Unremarkable. Midline sternotomy wires are noted. Mitral valvular replac ement is noted. Bones: No acute osseous abnormality. IMPRESSION: No acute cardiopulmonary disease.
--- NOTE | 2024-06-28 16:39 | DVH ---
EXAM: CT HEAD WITHOUT CONTRAST HISTORY: ro bleed COMPARISON: None TECHNIQUE: Axial images were obtained and reformatted in coronal and sagittal planes. All CT scans at this medical facility are performed using dose modulation techniques as appropriate t o a performed exam including the following: Automated exposure control was utilized; adjustment of th e MA and/or KV according to patient size; and use of iterative reconstruction technique. CT Dose: CTDI volume is 51.24 mGy. Dose-length product is 907.49 mGy*cm FINDINGS: Supratentorial Region: No evidence for large acute territorial ischemia. No intracranial hemorrhage is noted. Confluent white matter hypoattenuating foci are noted bilaterally, which typically reflect chronic microvascular ischemic changes. Posterior Fossa: No acute abnormality. Brainstem: Unremarkable. Sellar/Suprasellar Region: Unremarkable. Ventricles, Cisterns, Sulci: Age-appropriate. Orbits: Unremarkable. Paranasal Sinuses: Unremarkable. Mastoid Air Cells: Unremarkable. Vasculature: Intracranial arterial calcified plaque formation noted. Bones/Soft Tissues: No acute abnormality. Other: None. IMPRESSION: 1. No acute intracranial process.
[2024-06-28] MEDS ORDERED: NITROGLYCERIN 0.4 MG SL TAB SL PRN (18:45)
[2024-06-28] MEDS ORDERED: ONDANSETRON HCL 4 MG/2 ML VIAL IV PRN (18:45)
[2024-06-28] MEDS ORDERED: MORPHINE SULFATE INJ 2 MG/ml SYRG IV PRN (18:45)
[2024-06-28] MEDS ORDERED: ACETAMINOPHEN 325 MG TAB PO PRN (18:45)
[2024-06-28] MEDS ORDERED: hydrALAZINE HCL 20 MG/ML VL IV PRN (18:45)
[2024-06-28 19:06] LABS: Triglycerides 89 mg/dL (< 150)
[2024-06-28 19:08] LABS: Cholesterol 194 mg/dL (< 200)
[2024-06-28 19:13] LABS: HDL Cholesterol 69 mg/dL (40-59); LDL Cholesterol 116 mg/dL (< 100)
[2024-06-28 19:23] VITALS: BP 167/77; PULSE 70; RESP 12; TEMP 97.9; O2SAT 99
--- NOTE | 2024-06-28 20:45 | DVHHP2 ---
History of Present Illness Reason for Visit: Dizziness History of Present Illness 78-year-old female presents for evaluation of dizziness. The patient endorses a one day history of dizziness with associated blurred vision. When she checked her blood pressure was in the 170s. She reports her blood pressure normally runs in the 120s. Denies headache, chest pain or shortness for breath. No other acute complaints reported. Past Medical History Hypertension, CHF, cancer, AFib Past Surgical History PTCA Family History Noncontributory Smoke: No ALCOHOL: none Drugs: None Lives: with Family Review of Systems Review of Systems Review of systems are currently negative otherwise addressed in HPI. Allergies: Coded Allergies: Cinnamon (Verified Allergy, Mild, Facial swelling, 09/09/19) Medications Current Medications Medications Dose Ordered Sig/Rosario Route Start Time Stop Time Status Last Admin Dose Admin Hydralazine HCl 10 mg Q6HP PRN IV 06/28/24 18:45 Apixaban 5 mg BID PO 06/28/24 22:00 Spironolactone 25 mg DAILY PO 06/29/24 10:00 Furosemide 40 mg DAILY PO 06/29/24 10:00 Aspirin 81 mg DAILY PO 06/29/24 10:00 Amiodarone HCl 100 mg Q12HR PO 06/28/24 22:00 Ondansetron HCl 4 mg Q4HP PRN IV 06/28/24 18:45 Acetaminophen 650 mg Q6HP PRN PO 06/28/24 18:45 Nitroglycerin 0.4 mg Q5MINP PRN SL 06/28/24 18:45 Morphine Sulfate 2 mg Q30M PRN IV 06/28/24 18:45 Exam Vital Signs Vital Signs Date Time Temp Pulse Resp B/P (MAP) Pulse Ox O2 Delivery O2 Flow Rate FiO2 06/28/24 19:23 97.9 70 12 167/77 (107) 99 97.9 06/28/24 19:23 Room Air* 0 21 Exam Gen: 78-year-old female in mild distress Skin: Warm, dry, normal color and texture, no rash. HEENT: Normocephalic atraumatic, mucous membranes moist and pink. Neck: Cervical and supraclavicular nodes normal without enlargement, trachea is midline, thyroid gland is normal without masses. Pulmonary: Clear to auscultation and percussion bilaterally. Cardiac: Regular rate and rhythm. No murmur Abdomen: Soft, nontender, nondistended, bowel sounds present all 4 quadrants, no guarding, no rigidity, no organomegaly. Extremities: No cyanosis, clubbing, no edema Neuro: Cranial nerves II through XII grossly intact, normal affect and speech, no focal motor deficits. Labs/Xrays ORDERING PHYSICIAN: SUMAYA NORIEGA MD PROCEDURE(s): CXR2 - CHEST TWO VIEWS ROUTINE REASON: chest pain ORDER NUMBER(s): [id number], ACCESSION NUMBER(s): [id number] CHEST TWO VIEWS ROUTINE CLINICAL HISTORY: chest pain COMPARISON: None TECHNIQUE: Frontal and lateral view of the chest was obtained FINDINGS: Lines and Tubes: None Lungs: No focal consolidation. Pleura: No effusion. No pneumothorax. Cardiomediastinal contours: Unremarkable. Midline sternotomy wires are noted. Mitral valvular replacement is noted. Bones: No acute osseous abnormality. IMPRESSION: No acute cardiopulmonary disease. RING PHYSICIAN: SUMAYA NORIEGA MD PROCEDURE(s): HWOCT - HEAD WITHOUT CONTRAST REASON: ro bleed ORDER NUMBER(s): [id number], ACCESSION NUMBER(s): [id number] EXAM: CT HEAD WITHOUT CONTRAST HISTORY: ro bleed COMPARISON: None TECHNIQUE: Axial images were obtained and reformatted in coronal and sagittal planes. All CT scans at this medical facility are performed using dose modulation techniques as appropriate to a performed exam including the following: Automated exposure control was utilized; adjustment of the MA and/or KV according to patient size; and use of iterative reconstruction technique. CT Dose: CTDI volume is 51.24 mGy. Dose-length product is 907.49 mGy*cm FINDINGS: Supratentorial Region: No evidence for large acute territorial ischemia. No intracranial hemorrhage is noted. Confluent white matter hypoattenuating foci are noted bilaterally, which typically reflect chronic microvascular ischemic changes. Posterior Fossa: No acute abnormality. Brainstem: Unremarkable. Sellar/Suprasellar Region: Unremarkable. Ventricles, Cisterns, Sulci: Age-appropriate. Orbits: Unremarkable. Paranasal Sinuses: Unremarkable. Mastoid Air Cells: Unremarkable. Vasculature: Intracranial arterial calcified plaque formation noted. Bones/Soft Tissues: No acute abnormality. Other: None. IMPRESSION: 1. No acute intracranial process. Labs Test 06/28/24 19:14 06/28/24 11:35 06/28/24 10:54 Range/Units Troponin I High Sensitivity 47 *H </=34 ng/L Urine Color Colorless Yellow Urine Clarity Clear Clear Urine pH 7.0 5.0-9.0 Urine Specific [place] 1.004 1.001-1.035 Urine Protein Negative Negative Urine Ketones Negative Negative Urine Blood Negative Negative /uL Urine Nitrite Negative Negative Urine Bilirubin Negative Negative Urine Urobilinogen Normal Negative mg/dL Urine Leukocyte Esterase Negative Negative /uL Urine RBC <1 0 - 4 /hpf Urine Microscopic WBC 1 0-5 /HPF Urine Squamous Epithelial Cells Few <5 /hpf Urine Bacteria None seen None Seen /hpf Urine Glucose Normal Normal mg/dL White Blood Count 5.1 4.4-10.8 10^3/uL Red Blood Count 4.61 4.0-5.20 10^6/uL Hemoglobin 13.7 12.2-16.2 g/dL Hematocrit 41.9 36.0-46.0 % Mean Corpuscular Volume 90.8 80.0-100.0 fL Mean Corpuscular Hemoglobin 29.7 28.0-32.0 pg Mean Corpuscular Hemoglobin Concent 32.7 32.0-36.0 g/dL Red Cell Distribution Width 13.4 11.8-14.3 % Platelet Count 99 L 140-450 10^3/uL Mean Platelet Volume 8.8 6.9-10.8 fL Neutrophils (%) (Auto) 69.5 37.0-80.0 % Lymphocytes (%) (Auto) 22.3 10.0-50.0 % Monocytes (%) (Auto) 5.5 0.0-12.0 % Eosinophils (%) (Auto) 1.9 0.0-7.0 % Basophils (%) (Auto) 0.8 0.0-2.0 % Neutrophils # (Auto) 3.5 1.6-8.6 10 ^3/uL Lymphocytes # (Auto) 1.1 0.4-5.4 10 ^3/uL Monocytes # (Auto) 0.3 0-1.3 10 ^3/uL Eosinophils # (Auto) 0.1 0-0.8 10 ^3/uL Basophils # (Auto) 0 0-0.2 10 ^3/uL Nucleated Red Blood Cells 0.0 % Sodium Level 141 136-145 mmol/L Potassium Level 3.9 3.5-5.1 mmol/L Chloride Level 108 H 98-107 mmol/L Carbon Dioxide Level 26 20-31 mmol/L Anion Gap 7 5-15 Blood Urea Nitrogen 13 9-23 mg/dL Creatinine 0.67 0.550-1.02 mg/dL Glomerular Filtration Rate Calc 88 >90 mL/min BUN/Creatinine Ratio 19.4 10.0-20.0 Serum Glucose 103 74-106 mg/dL Calcium Level 9.9 8.7-10.4 mg/dL Triglycerides Level 89 < 150 mg/dL Cholesterol Level 194 < 200 mg/dL LDL Cholesterol 116 H < 100 mg/dL HDL Cholesterol 69 H 40-59 mg/dL Thyroid Stimulating Hormone (TSH) 1.35 0.55-4.78 uIU/mL Assessment/Plan Assessment/Plan Assessment Hypertensive urgency Elevated troponin, demand ischemia History of atrial fibrillation CHF Plan Admit the patient to telemetry to the hospitalist Echocardiogram pending As needed antihypertensives Resume home medications Continue treatment per orders. Plan discussed with: Patient My Orders Orders - NADIYA MACKAY Procedure Category Date Status Time Hydralazine Injection PHA 06/28/24 In Process (Apresoline Inject 18:45 Apixaban (Eliquis) PHA 06/28/24 In Process 22:00 Spironolactone PHA 06/29/24 In Process (Aldactone) 10:00 Furosemide Tablet PHA 06/29/24 In Process (Lasix Tablet) 10:00 Aspirin Tablet PHA 06/29/24 In Process 10:00 Amiodarone Tablet PHA 06/28/24 In Process (Cordarone Tablet) 22:00 Basic Metabolic Panel LAB 06/29/24 Verified 04:00 Admit ADMIT 06/28/24 Transmitted 18:35 Ondansetron Hcl PHA 06/28/24 In Process (Zofran) 18:45 Cardiac DIET 06/29/24 Transmitted Diet-2gna,Lofat,Lochol Breakfast Echo 2d Mode Cardiac US 06/28/24 Logged DOP 18:35 Condition: Fair [facility] 06/28/24 In Process 18:35 Acetaminophen Tablet PHA 06/28/24 In Process (Tylenol Tablet) 18:45 Bedrest With Bathroom [facility] 06/28/24 In Process Privileg 18:35 Nitroglycerin [facility] 06/28/24 In Process Sublingual (Ntrostat 18:45 Morphine Sulfate PHA 06/28/24 In Process Injection 18:45 Stat Ekg For Chest [facility] 06/28/24 In Process Pain 18:35 Notify Md Of Changes [facility] 06/28/24 In Process From Base 18:35 Telegraph Equipment Maintainer For [facility] 06/28/24 In Process 24 Hours 18:35 Emergency Dysrhythmia [facility] 06/28/24 In Process Protocol 18:35 Rhythm Strips Once [facility] 06/28/24 In Process Every Shift 18:35 Oxygen By Nasal RT 06/28/24 Transmitted Cannula 18:35 Date of Service: June 28, 2024 Billing Provider: NADIYA MACKAY Common Visit Codes: [id number] INP/OBS CARE (HIGH) NADIYA MACKAY June 28, 2024 20:45
[2024-06-28] MEDS: AMIODARONE HCL 200 MG TAB PO SCH (22:00)
[2024-06-28] MEDS: APIXABAN 5 MG TAB PO SCH (22:00)
[2024-06-29] MEDS ORDERED: ASPirin 81 mg TAB PO SCH (10:00)
[2024-06-29] MEDS ORDERED: LOSARTAN POTASSIUM 50 MG TAB PO SCH (10:00)
[2024-06-29] MEDS ORDERED: FUROSEMIDE 40 MG TAB PO SCH (10:00)
[2024-06-29] MEDS ORDERED: SPIRONOLACTONE 25 MG TAB PO SCH (10:00)
== END 2024-06-28 21:54 | disposition left against medical advice (07) | DRG 305 ==
LOC: ER 09:42 → EDBD 09:42 → EDUNIT# 09:42 → OVERFLOW 18:35
PROVIDERS: ADMIT Nurse Practitioner; ATTEND Nurse Practitioner
DX: I16.0 Hypertensive urgency (principal); I24.89 Other forms of acute ischemic heart disease; I11.0 Hypertensive heart disease with heart failure; Z53.29 Procedure and treatment not carried out because of patient's decision for other reasons; I50.9 Heart failure, unspecified; I48.91 Unspecified atrial fibrillation; Z79.82 Long term (current) use of aspirin; Z79.899 Other long term (current) drug therapy; Z91.018 Allergy to other foods
CPT/HCPCS: 36415; 70450; 71046; 80048; 80061; 81001; 84443; 84484; 85025; 93005; 96374; 99291; G0378